=== PATIENT | male | born 1980 | race Caucasian/White ===

== ENCOUNTER 2016-11-11 06:13 | Day surgery (SDC) | payer BC ==
--- NOTE | 2016-11-06 16:16 | HP ---
PREOPERATIVE HISTORY AND PHYSICAL: DATE OF ADMISSION/SURGERY: 11/11/16 DATE OF OFFICE VISIT: 11/05/16 ATTENDING SURGEON: Norberto Escobedo MD PROCEDURE: Right knee arthroscopic surgery and arthroscopic ACL reconstruction with use of allograf t. CHIEF COMPLAINT: Right knee pain. HISTORY OF PRESENT ILLNESS: The patient is a 36-year-old male who presents to the clinic with right knee pain and instability due to an ACL insufficiency. He has failed conservative measures and the refore agreed to undergo right knee arthroscopic surgery, arthroscopic ACL reconstruction with allog raft with Dr. Escobedo on 11/11/16. PAST MEDICAL HISTORY: Hypertension. PAST SURGICAL HISTORY: 1. Tonsillectomy. 2. Appendectomy. 3. Prostate surgery. 4. Meniscus surgery. 5. Right knee surgery. 6. Neck fusion. 7. Denies prior issues with anesthesia. MEDICATIONS: 1. Alprazolam 0.25 mg take one by mouth twice day as needed, maximum daily dose of 2. 2. Hydrochlorothiazide 25 mg take one by mouth every day. 3. Lisinopril 10 mg one by mouth every day. ALLERGIES: IODINE. FAMILY HISTORY: Stroke in his grandmother. SOCIAL HISTORY: He lives with his spouse. He works at the [employer] in the [employer] division. He chews tobacco. He reports occasional alcohol consumption. He exercises regularly . REVIEW OF SYSTEMS: General: Negative for fevers, chills, night sweats, and no known anesthesia pro blems. HEENT: Negative for headaches, lightheadedness, or syncopal episodes. Integumentary: Nega tive for abrasions, lesions, or open wounds. Cardiothoracic: Negative for chest pain, palpitations , edema, or negative for hypertension. Pulmonary: Negative for shortness of breath with exertion, chronic cough or COPD. GI: Positive for intermittent GERD, negative or nausea, vomiting, diarrhea or constipation. : Negative for nocturia, urinary frequency, history of UTI and kidney problems. Musculoskeletal: Positive for current complaint. Neuro: Negative for history of seizures, strok es or epilepsy. Positive for intermittent numbness and tingling of the hands. Endocrine: Negative for diabetes and thyroid issues. Heme: Negative for easy bruising, bleeding disorder, history of D VT or PE. Infectious Disease: Negative for history of MRSA, hep C or HIV. PHYSICAL EXAMINATION GENERAL: Well-developed, well-nourished 36-year-old male in no acute distress. Alert and oriented x 3, appropriate mood and affect. VITAL SIGNS: Height 69, weight 220, blood pressure 124/78, respiratory rate of 16, temperature of 9 6.8. BMI 32.5. HEENT: Normocephalic, atraumatic. PERRLA. NECK: Supple. Throat clear. PULMONARY: Lungs clear to auscultation bilaterally. No wheezing, rhonchi or rales. CARDIAC: Regular rate and rhythm. S1 and S2. No murmurs, gallops, or rubs. No edema. ABDOMEN: Positive bowel sounds. Soft and nontender. MUSCULOSKELETAL: Right lower extremity skin is intact. No warmth or erythema. Trace effusion. Ten julisa over the patellar facet. 0 to 130 degrees range of motion, stable to varus and valgus test; 2A Analisa, negative posterior drawer; +2 dorsalis pedis and posterior tibialis pulses. Sensation inta ct to light touch distally. NEUROLOGIC: Alert and oriented x3, cranial nerves grossly intact. Sensation intact to light touch. LABORATORY DATA: MRI of the right knee reveals ACL insufficiency, sequelae of previous medial meni scectomy, mild chondral changes but no advanced osteoarthritis. IMPRESSION: Right knee anterior cruciate ligament tear. PLAN/RECOMMENDATIONS: The patient is scheduled to undergo a right knee arthroscopic surgery, arthro scopic ACL reconstruction with use of allograft. He will return to the office 8 days postoperative for followup and suture removal. Percocet will be used for postoperative pain management and Keflex for antibiotic prophylaxis. LIZY GARCIA [id number]/[facility] #: [id number]
[~2016-11-11 06:13] MED LIST: Buffered Lidocaine 1% SYR 3ML* 3 ML/SYR SYRINGE INTRADERM ONE; Famotidine IV* 10 MG/ML 2 ML (20 mg) IV ONE; Famotidine IV* 10 MG/ML 2 ML (20 mg) ONE; ceFAZolin 2 GM PREMIX(*) 2 GM/50 ML BAG IVPB ONE
[2016-11-11] MEDS ORDERED: Bupivacaine 0.25% EPI 200,000* 30 ML SDV ONE (06:47)
[2016-11-11] MEDS ORDERED: Bupivacaine 0.25% SDV* 30 ML ONE (06:47)
[2016-11-11] MEDS ORDERED: Midazolam* 1 MG/ML 5 ML VIAL (5 MG) ONE (07:25)
[2016-11-11] MEDS ORDERED: fentaNYL* 50 MCG/ML 2 ML VIAL (100 MCG VIAL) ONE ×2 (07:25→07:45)
[2016-11-11] MEDS ORDERED: DiMENhydriNATE IV* 50 MG/ML VIAL ONE (07:44)
[2016-11-11] MEDS ORDERED: Lidocaine 2% PF * 5 ML VIAL ONE (07:44)
[2016-11-11] MEDS ORDERED: Ondansetron INJ* 2 MG/ML VIAL ONE (07:44)
[2016-11-11] MEDS ORDERED: Ketorolac INJ* 30 MG/ML 1 ML VIAL ONE (07:44)
[2016-11-11] MEDS ORDERED: Succinylcholine* 20 MG/ML 10 ML VIAL ONE (07:44)
[2016-11-11] MEDS ORDERED: Propofol* 10 MG/ML 20 ML BTL IV PUSH ONE (07:44)
[2016-11-11] MEDS ORDERED: Dexamethasone IV* 4 MG/ML 1 ML (4 MG) ONE (07:44)
[2016-11-11] MEDS ORDERED: DiMENhydriNATE IV* 50 MG/ML VIAL IV PUSH PRN (08:04)
[2016-11-11] MEDS ORDERED: Levalbuterol 0.63MG/3ML NEB INH PRN (08:04)
[2016-11-11] MEDS ORDERED: HYDROmorphone* 1 MG/ML 1 ML SYR ONE ×2 (08:34→09:54)
[2016-11-11] MEDS: HYDROmorphone* 1 MG/ML 1 ML SYR IV PRN ×5 (09:56→10:27)
[2016-11-11] MEDS: oxyCODONE/Acetamin 5/325 MG* TAB PO PRN ×2 (10:30→10:31)
[2016-11-11] MEDS ORDERED: oxyCODONE/Acetamin 5/325 MG* TAB ONE (10:30)
[2016-11-11 11:33] VITALS: BP 144/104
--- NOTE | 2016-11-12 14:17 | OP ---
CC: PCP OPERATIVE REPORT: DATE OF OPERATION: 11/11/16 DATE OF : 82 SURGEON: Norberto Escobedo MD [employer] OPERATOR: LIZY Gu. An miner assistant was needed for the entirety of the case to help with positioning, retraction, and was u tilized throughout all portions of the case. ANESTHESIOLOGIST: Dr. Villa ANESTHESIA: General. PRE-OP DIAGNOSIS: Right knee grade 3 anterior cruciate ligament rupture, medial meniscus tear. POST-OP DIAGNOSIS: Right knee grade 3 anterior cruciate ligament rupture with medial meniscus tear as well as plica. OPERATIVE PROCEDURE: 1. Right knee arthroscopy with ACL reconstruction using BTB allograft. 2. Partial medial meniscectomy. 3. Plica excision. 4. Chondroplasty. ESTIMATED BLOOD LOSS: Minimal. TOURNIQUET TIME: Zero minutes. COMPLICATIONS: None. IMPLANTS: Two SoftSilk anchors; one was 8 x 20 and the other was 9 x 25. INDICATIONS: Maria G Hannah is a 36-year-old gentleman who had a right knee injury about 12 yea rs ago when his foot was stuck in a mat. 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 He has persistent instability. He did have meniscus surgery in 201 0. There is no mention of his ACL, although he continued to have persistent issues after the menisc us surgery was done and the meniscus surgery did not treat his symptoms of instability. He has had persistent instability. He had an MRI confirming ACL insufficiency. After an extensive discussion, the risks and benefits of the conservative versus operative management, he would like to proceed wi th surgery. Operative risks include, but are not limited to bleeding; infection; damage to nerves; v essels; and surrounding structures; wound nonhealing; persistent pain; need for further surgery; and risks of anesthesia, failure of the graft, stiffness, scarring, persistent pain, risks of DVT, risk s of anesthesia. He was elected to proceed. DESCRIPTION OF PROCEDURE: The patient was greeted in the preoperative area by the attending surgeon . Correct extremity was marked and consent was confirmed. The patient was brought back to the oper ating suite, where he was placed in supine position on the operating table. He then underwent gener al anesthesia with LMA intubation after which examination of the knee was done. He was found to hav e 0 to 130 degrees of motion, stable to varus and valgus stress, 2B Analisa, negative posterior draw er, and no effusion. An unsterile tourniquet was placed high in the proximal thigh, bilateral posts were positioned, a beanbag was placed at the very end of the bed to keep the knee positioned at 90 degrees. After a miniature surgical pause indicating site, side, procedure, and administration of a ntibiotics, the right knee was intraarticularly was injected with 0.25% Marcaine with epi, after whi ch the right leg was prepped and draped in the usual sterile fashion beginning with chlorhexidine so ap scrub, and alcohol wipe, and a final prep with ChloraPrep. After appropriate surgical pause indicating site, side of procedure, and administration of antibioti cs; the attending surgeon was preparing the allograft on the back table to be size 10 mm in diameter x 23 mm for femoral block and a size 10 mm x 30 mm distally for the tibial block. Stay sutures wer e placed through both ends of the soft tissue graft as well as through the bony block. Once the gra ft was prepared, it was placed under tension on the back table. At this point, the anterolateral portal was then made using an 11 blade. The scope was introduced i nto the joint. The joint was examined. There was abundant synovitis and fat pad anteriorly. The m edial portal was made in outside-in fashion. Shaver was then used to debride the soft tissues and f at pad. The knee was then placed in extension. There was abundant medial plica that was present. T his was then carefully removed. Hemostasis was obtained using an electrocautery device. Again, the patient had a thick amount of synovitis which needed to be cleared out. After this was done, the s cope was positioned in the patellofemoral joint, which was found to have minimal grade 0 changes. T he medial and lateral gutters were intact without loose debris. The scope was then positioned in th e notch and there was a full thickness ACL tear, ruptured off the lateral wall. The ACL remnant tanesha mp had scarred to the PCL fragment. The scope was then positioned in the medial compartment. There was evidence of partial medial meniscectomy with small unstable flaps. These were then debrided ba ck using the shaver. The medial compartment had grade 0 to 1 changes in the femoral condyle and gra de 0 to 1 changes in the tibia. After the debridement was complete, the knee was placed figure-of-f our position and the lateral compartment was identified. There was grade 2 changes to the lateral t ibial plateau with an unstable flap that was debrided back. After the chondroplasty was done, the m eniscus was probed and examined and found to be intact. The lateral femoral condyle had grade 0 to 1 changes. The knee was then placed back in 90 degrees and then attention was directed to the ACL. The lateral wall was then prepared in the usual fashion with electrocautery device and shaver. Once it was devoid of tissue, the starting awl was then used to carol the presumed center of the femoral footprint. This was then checked by changing the scopes from the lateral to the anteromedial portal and this was used as the guide for where the final tunnel will be placed. Attention was directed to the tibia, the tip-to-tip guide was placed at about 50 degrees. The soft tissue incision was then made inline with the guide using a 15 blade and soft tissues were carefully dissected to expose the bone. The guide wire was then positioned. Once the appropriate position w as identified, this was overdrilled using a size 10 mm full-bore reamer. All loose debris and fluid were removed. The tunnel was then prepared using the shaver and rasp to allow for easy passage of the bone block. Images of the tunnel were obtained. At this point, attention was directed to the f emoral tunnel. With the knee gently placed in hyperflexion, the [employer] straight guide was then placed in the center of the ACL footprint. Once this was properly positioned, a Beath pin was then advanced to the center of the footprint, up to the lateral cortex and the skin. After this the size 10 mm low profile reamer was then passed anteromedially and a tunnel depth of about 26 mm was then made. Shaver was then used to remove any excess bone debris. The tunnel was then notched usin g the manager equipment and the tunnel was visualized and found to have good back wall. At this point, a #2 T i-Cron suture was passed through the eyelet of the Beath pin and advanced through the skin laterally and passing in the antegrade fashion to the tibia. The graft was then brought to the back to the operating table by the attending surgeon. This was th en passed under the arthroscopic visualization and well seated in the femoral tunnel. With tension on the femoral side as well as slight tension on the tibial side, a nitinol wire was then used and a size 8 x 20 mm SoftSilk screw was used to secure the femoral bone block. This did have good purcha se. At this point, the tension was released and the knee was taken through full extension, found to not impinge anteriorly, then the knee was cycled approximately 15 times, from full extension to ful l flexion with no loosening of the graft. The scope was then brought into the joint again and visua lized to find that there was no changes of the graft placement after which the knee was then placed in about 20 degrees of flexion with tension on the tibial sutures and nitinol wire was placed and a size 9 x 25 mm screw was used to secure the tibial bone block. This was placed with excellent purch ase. The Analisa was assessed and found to be stable. The knee was taken to full range of motion a nd there was no impingement identified. The scope was brought back to the joint and the graft was v isualized and found to be intact. The incisions were copiously irrigated. The excess bone block was debrided from the tibial tunnel. The portals were closed with 3-0 nylon. The anterior tibial woun d was closed in layers with 2-0 Vicryl, 3-0 Monocryl. Sterile dressings were applied. The knee was intraarticularly injected with a 0.25% Marcaine plain, sterile dressings as well as Cryo/Cuff and h inged knee brace locked at 0 degrees was then placed. The patient was awoken from anesthesia, trans ferred to the PACU in stable condition. POSTOPERATIVE PLAN: He will be weightbearing as tolerated, but locked in extension for 4 weeks. He will start therapy next week. He will be discharged with pain medications as well as antibiotics. DVT prophylaxis was considered, but deferred due to no previous personal or family history. I will see the patient back in approximately 6 to 8 days. [id number]/[facility] #: [id number]
== END 2016-11-11 11:35 | disposition home or self-care (01) ==
LOC: OR 06:13
PROVIDERS: ATTEND Orthopaedic Surgery
DX: M23.8X1 Other internal derangements of right knee (principal); M23.51 Chronic instability of knee, right knee; M23.203 Derangement of unspecified medial meniscus due to old tear or injury, right knee; M67.51 Plica syndrome, right knee; I10 Essential (primary) hypertension; M19.90 Unspecified osteoarthritis, unspecified site; Z87.891 Personal history of nicotine dependence
CPT/HCPCS: A9270-GY; C1713; J0330; J0690; J1100; J1170; J1240; J1885; J2250; J2405; J2704; J3010

== ENCOUNTER 2018-02-11 16:08 | Emergency (ER) | payer BC, OTHER ==
[2018-02-11 16:44] VITALS: BP 126/89
--- NOTE | 2018-02-11 16:45 | UC ---
Laceration HPI - HPI Summary HPI Summary: 38 yo male presents with laceration to left urbina sustained around 1045 this morning while at work. 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 He sustained a laceration here. He went to the residential nurse and was given a tdap and steri- strips to the wound. He continued working and came to after work. - History Of Current Complaint Chief Complaint: UCLaceration Stated Complaint: URBINA LAC WC Time Seen by Provider: 02/11/18 16:45 Hx Obtained From: Patient Mechanism Of Injury: Blunt Trauma Onset/Duration: Sudden Onset Severity: Mild Pain Intensity: 2 Pain Scale Used: 0-10 Numeric - Allergies/Home Medications Allergies/Adverse Reactions: Allergies Allergy/AdvReac Type Severity Reaction Status Date / Time Iodinated Contrast- Oral and Allergy Swelling Verified 02/11/18 16:45 IV Dye PMH/Surg Hx/FS Hx/Imm Hx Cardiovascular History: Hypertension Psychological History: Anxiety - Surgical History Surgical History: Yes Surgery Procedure, Year, and Place: RIGHT KNEE SURGERY CLEANED MENISCUS 2009, acl in right knee, PROSTATE ABCESS DRAINAGE, APPENDIX, TONSILS, PLATE IN NECK SPINAL STENOSIS C4-C5 - Family History Known Family History: Positive: None - Social History Occupation: Employed Full-time Lives: With Family Alcohol Use: Daily Alcohol Amount: 5 drinks per day Substance Use Type: None Substance Use Comment - Amount & Last Used: 5 cup coffee daily Smoking Status (MU): Former Smoker Amount Used/How Often: 1/2 ppd When Did the Patient Quit Smoking/Using Tobacco: 2006 Review of Systems Constitutional: Negative Skin: Other - Laceration left urbina Respiratory: Negative Cardiovascular: Negative Neurovascular: Negative Musculoskeletal: Negative Neurological: Negative Psychological: Negative All Other Systems Reviewed And Are Negative: Yes Physical Exam - Summary Physical Exam Summary: GENERAL: NAD. WDWN. No pain distress. SKIN: Left urbina: 2.5cm linear laceration overlying the tibia. Mild active bleeding. CHEST: No accessory muscle use. Breathing comfortably and in no distress. CV: Pulses intact. Cap refill <2seconds MSK: Left LE: FROM NEURO: Alert. Sensations intact left LE PSYCH: Age appropriate behavior. Triage Information Reviewed: Yes Vital Signs: Initial Vital Signs Temp 98.2 F 02/11/18 16:37 Pulse 94 02/11/18 16:37 Resp 16 02/11/18 16:37 BP 126/89 02/11/18 16:37 Pulse Ox 100 02/11/18 16:37 Vital Signs Reviewed: Yes Laceration Repair - Laceration Repair 1 Description: Linear Laceration Size After Repair: Length (cm) - 2.5 Type Injection: Local Anesthesia Used: 2.0% Lido Additive Used (in ml): Epi Irrigation With Pressure Irrigation Device: Yes Closure Material: Sutures - 4-0 FIVE Closure Method: Single Layer Suture Of: Skin Suture Type: Prolene Laceration Course/Dx - Course/Dx Course Of Treatment: A time out was performed, witnessed, and signed. The area was irrigated with 500mL sterile saline. 2mL of 2% lidocaine with epi was administered and good anesthetization was achieved. In the usual sterile fashion , FIVE 4-0 prolene interrupted sutures were placed. The wound was bandaged with telfa . Pt tolerated procedure well. - Differential Dx - Laceration/Wound Provider Diagnoses: Laceration left urbina Discharge - Sign-Out/Discharge Documenting (check all that apply): Patient Departure - Discharge Plan Condition: Stable Disposition: HOME Patient Education Materials: Care For Your Stitches (DC), Laceration (DC) Referrals: Leonidas Wheeler MD [Primary Care Provider] - Additional Instructions: If you develop a fever, shortness of breath, chest pain, new or worsening symptoms - please call your PCP or go to the ED. 1) Please keep the area bandaged, clean, dry, and intact for the next 24- 48hours. 2) If you develop a fever, colored or thick discharge, increased pain or swelling - please call your PCP or go to the ED. 3) Please return in 10 days to have your FIVE sutures removed. - Billing Disposition and Condition Condition: STABLE Disposition: Home
[2018-02-11] MEDS ORDERED: Lidocaine 2% W/EPI 1:100,000* 20 ML MDV INJ ONE (16:51)
== END 2018-02-11 17:41 | disposition home or self-care (01) ==
LOC: UCEAST 16:08
DX: S81.812A Laceration without foreign body, left lower leg, initial encounter (principal); W22.03XA Walked into furniture, initial encounter; Y93.83 Activity, rough housing and horseplay; Y92.149 Unspecified place in prison as the place of occurrence of the external cause; Y99.0 Civilian activity done for income or pay; Z91.041 Radiographic dye allergy status; Z87.891 Personal history of nicotine dependence
CPT/HCPCS: 12001; 99212; G0463

== ENCOUNTER 2018-02-17 07:10 | Emergency (ER) | payer OTHER ==
--- NOTE | 2018-02-17 07:23 | UC ---
HPI Wound/Suture Re-check - HPI Summary HPI Summary: IN ROOM NOTE: A 38 y/o M presents to [facility] for wound recheck of L anterior urbina lac repair. Pt was previously seen on 02/11/18 at [facility] for a L anterior urbina lac that occurred that date while at work. The linear lac repair that date included five 4-0 prolene sutures. His L urbina is erythematous, purulent and painful. Denies cold sx, dysphagia. Aggravating factors: walking. He states he is feeling well otherwise. Pt has a mild cough at baseline that he believes it's due to his sarcoidosis. He states drinking less recently. Allergies noted. NOTE: A 38 y/o M seen here six days ago for repair of laceration of L urbina. Five sutures placed. The area is now painful. The plan was to remove the suture in 10 days. Patient is allergic to contrast, but no other listed allergies. Patient 's hx is significant for HTN treated with Hydrodiuril and Lisinopril. Patient also uses an inhaler, and Xanax for anxiety. NURSE'S NOTE: was in on for a left urbina lac repair, wound is painfull red an swollen. stitches still in place. had tetnus at [employer] . - History Of Current Complaint Stated Complaint: RECHECK WOUND ON LEG Time Seen by Provider: 02/17/18 07:20 Hx Obtained From: Patient Onset/Duration: Lasting Days, Still Present Severity: Severe Pain Intensity: 8 Pain Scale Used: 0-10 Numeric Procedure Type: lac repair to L anterior urbina on 02/11/18 - Allergies/Home Medications Allergies/Adverse Reactions: Allergies Allergy/AdvReac Type Severity Reaction Status Date / Time Iodinated Contrast- Oral and Allergy Swelling Verified 02/17/18 07:26 IV Dye Home Medications: Home Medications Lisinopril 10 mg PO DAILY WITH MEAL 02/17/18 [History Confirmed 02/17/18] PMH/Surg Hx/FS Hx/Imm Hx Previously Healthy: No - pos: arthritis Cardiovascular History: Hypertension Respiratory History: Bronchitis Other Respiratory History: neg: asthma GI/ History: Gastroesophageal Reflux Psychological History: Anxiety - Surgical History Surgical History: Yes Surgery Procedure, Year, and Place: RIGHT KNEE SURGERY CLEANED MENISCUS 2009, acl in right knee, PROSTATE ABCESS DRAINAGE, APPENDIX, TONSILS, PLATE IN NECK SPINAL STENOSIS C4-C5 - Family History Family History: neg: family anaesthesia reaction - Social History Occupation: Employed Full-time Lives: Dormitory/Roommates Alcohol Use: Daily Alcohol Amount: 5 drinks per day Substance Use Type: None Substance Use Comment - Amount & Last Used: 5 cup coffee daily Smoking Status (MU): Former Smoker Amount Used/How Often: 1/2 ppd When Did the Patient Quit Smoking/Using Tobacco: 2006 Review of Systems Skin: Other - L anterior urbina shows erythema, pus and has pain ENT: Negative - dysphagia Respiratory: Negative - cold sx All Other Systems Reviewed And Are Negative: Yes - Comments Additional Review of Systems Comments: POSITIVE: LLE URBINA IS RED, PURULENT AND PAINFUL. NEGATIVE: COLD SX, DYSPHAGIA. Physical Exam - Summary Physical Exam Summary: Appearance: The patient is well-appearing, is in no pain distress, and is well- nourished. Eyes: Conjunctiva are clear. ENT: The hearing is grossly normal, the pharynx is normal, and the TMs are normal. There is no muffled or hoarse voice. Neck: The neck is supple and there is no lymphadenopathy. Respiratory: The chest is nontender. The lungs are clear, there are normal breath sounds, and there is no respiratory distress. Cardiovascular: Heart is regular rate and rhythm. There is no murmur. Abdomen: The abdomen is soft and nontender. There is no organomegaly. Bowel sounds: present Musculoskeletal: Strength is intact. The patient moves all extremities. LLE, ANTERIOR ASPECT OF THE URBINA: THERE IS AN APPROX 2 INCH VERTICAL LAC ALONG THE MID-SHAFT. IT IS CLEARLY PURULENT. THERE IS SURROUNDING ERYTHEMA APPROX 2 INCHES WIDE AT THE MIDDLE POINT. THE AREA IS TENDER WHERE ERYTHEMATOUS. Neurological: The patient is alert. Psychological: The patient displays age appropriate behavior Skin: Negative for rashes. Triage Information Reviewed: Yes Vital Signs Reviewed: Yes Diagnostics - Laboratory Diagnostic Studies Completed/Ordered: LLE XR, as read by radiologist: IMPRESSION: NO APPRECIABLE EROSION OR PERIOSTEAL REACTION. PLAIN FILM FINDINGS OF OSTEOMYELITIS ARE RELATIVELY LATE FINDINGS. IF THERE IS PERSISTENT CLINICAL CONCERN FOR OSTEOMYELITIS,. RECOMMEND CORRELATION WITH FOLLOWUP IMAGING, THREE- PHASE BONE SCANNING, WHITE BLOOD CELL SCAN, AND/OR MRI OF THE AFFECTED REGION. [facility] provider has reviewed this report. Re-Evaluation - Re-Evaluation 1 Re-Evaluation Time: 08:35 Change: Improved Comment: Discussing XR results with pt. Pt's pain has improved. Removed 5 sutures from L urbina. Course/Dx - Course Course Of Treatment: Medications have been included in the original chart and reviewed. After initial examination of wound, the plan is to remove sutures, irrigate the wound, and give Perenterol and Cephalexin ABX. Will also obtain an XR to ensure the cellulitis has not infected the underlying tibia. Five sutures removed. Approximately 1mm of pus was expressed from wound. Wound revealed significant tenderness to gentle palpation. No ascending cellulitis or lymphangitis. I instructed the patient to use warm soaks every 2 hours; take ABX ; use IBP and acetaminophen for pain; use Bactroban over the wound site. No evidence of osteomylelitis by XR at this time. No work for two days. Pt will be reevaluated by me in 2 days. Elevated BP but has current hypertension diagnosis and treatment. This should be rechecked a few times in the next month. Patient has been given an antibiotic because findings on physical examination and health history. The risks and benefits of antibiotic treatment have been discussed and patient has voiced understanding of these risks including the possibility of developing clostridium difficile enterocolitis. - Differential Dx - Laceration/Wound Provider Diagnoses: 1. Cellulitis, L anterior tibia, at previous suture site. 2. Blood pressure in poor control Discharge - Sign-Out/Discharge Documenting (check all that apply): Patient Departure - DC All imaging exams completed and their final reports reviewed: No Studies - Discharge Plan Condition: Stable Disposition: HOME Prescriptions: Cephalexin CAP* [Keflex 500 CAP*] 500 mg PO QID #40 cap MDD 4 Ibuprofen TAB* [Motrin TAB* 800 MG] 800 mg PO Q8HR #14 tab Mupirocin 2% OINT* [Bactroban 2 % Oint*] 1 applic TOPICAL BID #1 tube Patient Education Materials: Laceration (ED) Forms: *Work Release Referrals: Leonidas Wheeler MD [Primary Care Provider] - Additional Instructions: PLEASE SEEK CARE AT THE EMERGENCY DEPARTMENT IF SYMPTOMS WORSEN OR IF NEW SYMPTOMS DEVELOP. FOLLOW UP WITH YOUR PRIMARY CARE PHYSICIAN. For pain or discomfort use: Ibuprofen 400 - 600mg PLUS acetaminophen 500mg - 1000mg every 8 hours. Maximum is 3 doses a day. If this dosage is required for more than 5 days, you should re-check with your doctor. Your blood pressure reading today was 164/92, indicating HYPERTENSION. Follow- up with your primary care provider within 4 weeks for blood pressure readings and further evaluation. Your new anti hypertensive medication may take care of this. Follow with repeated BP checks. WE DISCUSSED: 1. You have a skin infection of your left urbina. 2. Take antibiotic 4 times a day. 3. Take ibuprofen and 500mg of acetaminophen up to 3 times a day for pain. 4. Use antibiotic ointment. 5. Lots of warm water soaks. 6. Rest and elevate left leg; no work for 4 days. 7. Re check with me in 2 days. - Billing Disposition and Condition Condition: STABLE Disposition: Home - Attestation Statements Document Initiated by Adriane: Yes Documenting Howieibmaxine: Leda Owens Provider For Whom Adriane is Documenting (Include Credential): Mike Cabral MD Scribe Attestation: ILeda, scribed for Mike Cabral MD on 02/17/18 at 0855. Scribe Documentation Reviewed: Yes Provider Attestation: The documentation as recorded by the Leda padron accurately reflects the service I personally performed and the decisions made by me, Mike Cabral MD
[2018-02-17 07:25] VITALS: BP 164/92
[2018-02-17] MEDS ORDERED: Acetaminophen TAB* 325 MG PO ONE (07:38)
[2018-02-17] MEDS ORDERED: Ibuprofen TAB* 600 MG PO ONE (07:38)
[2018-02-17] MEDS ORDERED: ceFAZolin 500 MG VIAL(*) 500 MG VIAL IM ONE (07:39)
[2018-02-17] MEDS ORDERED: Lidocaine 1% MPF wEPI 200,000* 30 ML SDV INJ ONE (07:41)
--- NOTE | 2018-02-17 08:11 | RAD ---
HISTORY: infection-cellulitis COMPARISONS: None VIEWS: 2 , Frontal and lateral views of the left foreleg FINDINGS: BONE DENSITY: Normal. BONES: There is no displaced fracture. There is no appreciable erosion or periosteal reaction. JOINTS: There is no arthropathy. ALIGNMENT: There is no dislocation. SOFT TISSUES: Unremarkable. OTHER FINDINGS: None. IMPRESSION: NO APPRECIABLE EROSION OR PERIOSTEAL REACTION. PLAIN FILM FINDINGS OF OSTEOMYELITIS ARE RELATIVELY LATE FINDINGS. IF THERE IS PERSISTENT CLINICAL CONCERN FOR OSTEOMYELITIS, RECOMMEND CORRELATION WITH FOLLOWUP IMAGING, THREE-PHASE BONE SCANNING, WHITE BLOOD CELL SCAN, AND/OR MRI OF THE AFFECTED REGION.
--- NOTE | 2018-02-18 09:22 | UC ---
- Progress Note Progress Note: Pt on cephalex wound no organsim gram stain await culture no change 02/18/2018 Re-Evaluation - Re-Evaluation 1 Re-Evaluation Time: 08:35 Change: Improved Comment: Discussing XR results with pt. Pt's pain has improved. Removed 5 sutures from L urbina. Discharge - Sign-Out/Discharge Documenting (check all that apply): Post-Discharge Follow Up All imaging exams completed and their final reports reviewed: No Studies - Discharge Plan Condition: Stable Disposition: HOME Prescriptions: Cephalexin CAP* [Keflex 500 CAP*] 500 mg PO QID #40 cap MDD 4 Ibuprofen TAB* [Motrin TAB* 800 MG] 800 mg PO Q8HR #14 tab Mupirocin 2% OINT* [Bactroban 2 % Oint*] 1 applic TOPICAL BID #1 tube Patient Education Materials: Laceration (ED) Forms: *Work Release Referrals: Leonidas Wheeler MD [Primary Care Provider] - Additional Instructions: PLEASE SEEK CARE AT THE EMERGENCY DEPARTMENT IF SYMPTOMS WORSEN OR IF NEW SYMPTOMS DEVELOP. FOLLOW UP WITH YOUR PRIMARY CARE PHYSICIAN. For pain or discomfort use: Ibuprofen 400 - 600mg PLUS acetaminophen 500mg - 1000mg every 8 hours. Maximum is 3 doses a day. If this dosage is required for more than 5 days, you should re-check with your doctor. Your blood pressure reading today was 164/92, indicating HYPERTENSION. Follow- up with your primary care provider within 4 weeks for blood pressure readings and further evaluation. Your new anti hypertensive medication may take care of this. Follow with repeated BP checks. WE DISCUSSED: 1. You have a skin infection of your left urbina. 2. Take antibiotic 4 times a day. 3. Take ibuprofen and 500mg of acetaminophen up to 3 times a day for pain. 4. Use antibiotic ointment. 5. Lots of warm water soaks. 6. Rest and elevate left leg; no work for 4 days. 7. Re check with me in 2 days. - Billing Disposition and Condition Condition: STABLE Disposition: Home
--- NOTE | 2018-02-18 13:00 | UC ---
- Progress Note Progress Note: S.Aureus (+) MRSA (-) patient on Keflex no change to current treatment RX Re-Evaluation - Re-Evaluation 1 Re-Evaluation Time: 08:35 Change: Improved Comment: Discussing XR results with pt. Pt's pain has improved. Removed 5 sutures from L urbina. Discharge - Sign-Out/Discharge Documenting (check all that apply): Post-Discharge Follow Up All imaging exams completed and their final reports reviewed: No Studies - Discharge Plan Condition: Stable Disposition: HOME Prescriptions: Cephalexin CAP* [Keflex 500 CAP*] 500 mg PO QID #40 cap MDD 4 Ibuprofen TAB* [Motrin TAB* 800 MG] 800 mg PO Q8HR #14 tab Mupirocin 2% OINT* [Bactroban 2 % Oint*] 1 applic TOPICAL BID #1 tube Patient Education Materials: Laceration (ED) Forms: *Work Release Referrals: Leonidas Wheeler MD [Primary Care Provider] - Additional Instructions: PLEASE SEEK CARE AT THE EMERGENCY DEPARTMENT IF SYMPTOMS WORSEN OR IF NEW SYMPTOMS DEVELOP. FOLLOW UP WITH YOUR PRIMARY CARE PHYSICIAN. For pain or discomfort use: Ibuprofen 400 - 600mg PLUS acetaminophen 500mg - 1000mg every 8 hours. Maximum is 3 doses a day. If this dosage is required for more than 5 days, you should re-check with your doctor. Your blood pressure reading today was 164/92, indicating HYPERTENSION. Follow- up with your primary care provider within 4 weeks for blood pressure readings and further evaluation. Your new anti hypertensive medication may take care of this. Follow with repeated BP checks. WE DISCUSSED: 1. You have a skin infection of your left urbina. 2. Take antibiotic 4 times a day. 3. Take ibuprofen and 500mg of acetaminophen up to 3 times a day for pain. 4. Use antibiotic ointment. 5. Lots of warm water soaks. 6. Rest and elevate left leg; no work for 4 days. 7. Re check with me in 2 days. - Billing Disposition and Condition Condition: STABLE Disposition: Home
== END 2018-02-17 08:55 | disposition home or self-care (01) ==
LOC: UCEAST 07:10
DX: L03.116 Cellulitis of left lower limb (principal); S81.812D Laceration without foreign body, left lower leg, subsequent encounter; R05 Cough; D86.9 Sarcoidosis, unspecified; I10 Essential (primary) hypertension; F41.9 Anxiety disorder, unspecified; Z79.899 Other long term (current) drug therapy; Z91.041 Radiographic dye allergy status
CPT/HCPCS: 87070; 87077; 87186; 87205; 87640; 87641; 96372; 99203; A9270-GY; G0463; J0690; J2001

== ENCOUNTER 2018-02-19 13:08 | Emergency (ER) | payer OTHER ==
[2018-02-19 13:17] VITALS: BP 133/95
--- NOTE | 2018-02-19 13:22 | UC ---
HPI Wound/Suture Re-check - HPI Summary HPI Summary: IN-ROOM NOTE: Patient is a 38 y/o M presenting to w/ wound recheck on left urbina. Patient has laceration on left urbina. He is following up for infected incision site that Dr. Cabral saw two days ago and that was initially treated seven days ago. Patient denies fever, red streaks since last recheck. Patient has been taking prescribed antibiotics. Left ankle swelling is reported. Wound is still painful but less presently. NOTE: Vital signs stable, afebrile, BP 133/95, 5/10 discomfort. NURSE'S NOTE: pt cut his lt urbina at work and thinks it is infected. pt was seen here . pt was told to return today. - History Of Current Complaint Chief Complaint: Wounds Stated Complaint: L LEG LAC Time Seen by Provider: 02/19/18 13:11 Hx Obtained From: Patient Onset/Duration: Lasting Days - INITIALLY TREATED FOR WOUND SEVEN DAYS AGO, Still Present Severity: Moderate - 5/10 Pain Intensity: 5 Pain Scale Used: 0-10 Numeric - 5/10 Procedure Type: STITCHES - Allergies/Home Medications Allergies/Adverse Reactions: Allergies Allergy/AdvReac Type Severity Reaction Status Date / Time Iodinated Contrast- Oral and Allergy Swelling Verified 02/19/18 13:16 IV Dye PMH/Surg Hx/FS Hx/Imm Hx - Additional Past Medical History Additional PMH: SARCOIDOSIS Cardiovascular History: Hypertension - Surgical History Surgical History: Yes Surgery Procedure, Year, and Place: RIGHT KNEE SURGERY CLEANED MENISCUS 2009, acl in right knee, PROSTATE ABCESS DRAINAGE, APPENDIX, TONSILS, PLATE IN NECK SPINAL STENOSIS C4-C5 - Family History Family History: neg: family anaesthesia reaction - Social History Alcohol Use: Daily Alcohol Amount: 5 drinks per day Substance Use Type: None Substance Use Comment - Amount & Last Used: 5 cup coffee daily Smoking Status (MU): Former Smoker Amount Used/How Often: 1/2 ppd When Did the Patient Quit Smoking/Using Tobacco: 2006 Review of Systems Constitutional: Other - NEGATIVE: FEVER, TEMP ON VITALS IS 98.1 F Skin: Other - NEGATIVE: RED STREAKING; POSITIVE: LEFT ANKLE SWELLING, LEFT URBINA LACERATION, PAIN AT WOUND SITE All Other Systems Reviewed And Are Negative: Yes - Comments Additional Review of Systems Comments: NEGATIVE: RED STREAKING, FEVER; POSITIVE: LEFT URBINA LACERATION, LEFT ANKLE SWELLING, PAIN AT WOUND SITE Physical Exam - Summary Physical Exam Summary: Appearance: The patient is well-appearing, is in no pain distress, and is well- nourished. Eyes: Conjunctiva are clear. ENT: The hearing is grossly normal, the pharynx is normal, and the TMs are normal. There is no muffled or hoarse voice. Neck: The neck is supple and there is no lymphadenopathy. Respiratory: The chest is nontender. The lungs are clear, there are normal breath sounds, and there is no respiratory distress. Cardiovascular: Heart is regular rate and rhythm. There is no murmur. Abdomen: The abdomen is soft and nontender. There is no organomegaly. Bowel sounds: present Musculoskeletal: Strength is intact. The patient moves all extremities. Neurological: The patient is alert. Psychological: The patient displays age appropriate behavior Skin: Negative for rashes. 5 CM LINEAR LACERATION OPEN TO ABOUT 0.5 CM AT ITS WIDEST PART IN THE MIDDLE. APPROXIMATELY 5-6 CM OF CIRCULAR ERYTHEMA THAT IS MINIMALLY TENDER TO PALPATION. NO ASCENDING LYMPHANGITIS OR CELLULITIS. Triage Information Reviewed: Yes Vital Signs: Initial Vital Signs Temp 98.1 F 02/19/18 13:13 Pulse 77 02/19/18 13:13 Resp 18 02/19/18 13:13 BP 133/95 02/19/18 13:13 Pulse Ox 100 02/19/18 13:13 Vital Signs Reviewed: Yes Course/Dx - Course Course Of Treatment: Medications have been included in the original chart and reviewed. Elevated BP but has current hypertension diagnosis and treatment. This should be rechecked a few times in the next month. Follow up for infected incision site that I saw two days ago and that was initially treated seven days ago. Patient has been on Keflex. The wound is less angry and a lot less tender. Patient will continue on Keflex course for a total of ten days and will follow up if any new problems arise. Patient is staph auerus positive, MRSA negative. Culture is cefazolin-sensitive. Dx of healing cellulitis of the left urbina, anterior tibia. - Differential Dx - Laceration/Wound Provider Diagnoses: healing cellulitis of the left urbina, anterior tibia. Discharge - Sign-Out/Discharge Documenting (check all that apply): Patient Departure - DISCHARGE All imaging exams completed and their final reports reviewed: No Studies - Discharge Plan Condition: Stable Disposition: HOME Patient Education Materials: Cellulitis (DC) Referrals: Leonidas Wheeler MD [Primary Care Provider] - Additional Instructions: PLEASE SEEK CARE AT THE EMERGENCY DEPARTMENT IF SYMPTOMS WORSEN OR IF NEW SYMPTOMS DEVELOP. FOLLOW UP WITH YOUR PRIMARY CARE PHYSICIAN. Your blood pressure reading today was 133/95. Follow-up with your primary care provider within 4 weeks for blood pressure readings and further evaluation. As we discussed, this skin infection appear urbina is getting better. It is less red and less tender. There is no evidence of extension of the skin infection. Continue warm soaks and antibiotic ointment as well as the antibiotic for a total of 10 days. Call us or recheck at any time for increased pain, swelling, new redness or increasing disability. - Billing Disposition and Condition Condition: STABLE Disposition: Home - Attestation Statements Document Initiated by Adriane: Yes Documenting Scribe: Delmar Botello Provider For Whom Adriane is Documenting (Include Credential): Mike Cabral MD Scribe Attestation: IDelmar , scribed for Mike Cabral MD on 02/19/18 at 1351. Scribe Documentation Reviewed: Yes Provider Attestation: The documentation as recorded by the Delmar padron accurately reflects the service I personally performed and the decisions made by me, Mike Cabral MD
== END 2018-02-19 13:30 | disposition home or self-care (01) ==
LOC: UCEAST 13:08
DX: L03.116 Cellulitis of left lower limb (principal); I10 Essential (primary) hypertension; D86.9 Sarcoidosis, unspecified
CPT/HCPCS: 99211; G0463